=== PATIENT | female | born 1985 | race Caucasian/White ===

== ENCOUNTER 2019-02-12 22:55 | Emergency (ER) | payer BC, MEDICAID ==
[~2019-02-12] VITALS: Ht 167.6 cm; Wt 83.9 kg
[2019-02-12 22:57] VITALS: BP 118/70
[2019-02-12] MEDS ORDERED: FLUOXETINE HCL10 M2 ORAL (22:58)
[2019-02-12] MEDS ORDERED: TRAZODONE HCL150 MG ORAL (22:58)
--- NOTE | 2019-02-12 22:59 | NUR ---
ED Nurse Note: Patient here BIBA reports possible overdose, patient and patient sister denies reports. Patient has history of psych.
--- NOTE | 2019-02-12 23:16 | NUR ---
ED Nurse Note: Patient admits attempting to see therapist who no longer provided care for her and having the police called on her. She denies intention to harm herself and appears to have no ability to guage inappropriate behavior.
--- NOTE | 2019-02-12 23:31 | Emergency Room Report ---
History of Present Illness General Chief Complaint: Overdose Source: Patient Present Illness HPI This is a 33-year-old female with psychiatric history with bipolar. She was brought in by EMS with police escort complaint of behavioral disorder. She was placed on a 5150 for danger to self and danger to others. Patient states she told her sister and mom state that she was suicidal because she could not reach her therapist for the last 2 weeks. She states she was concerned about him. Patient told nursing staff that she saw her therapist 2 weeks ago. Her therapist called police and said that it was inappropriate for her to be there. She has been trying to contact for the last 2 weeks without any response. This of this, she said she is depressed and suicidal. Per police, she tells several numbers that she will commit suicide by taking unknown number of pills. Additionally, we said her mom is inferior of her safety because patient has threatened her in the past. Patient denies any of this. She says she is not suicidal. Denies threatening mom. Allergies: Coded Allergies: No Known Allergies (Unverified , 02/12/19) Patient History Past Medical History: see triage record, old chart reviewed, psych hx, bipolar Past Surgical History: other Family History: none Social History: single Last Menstrual Period: 02/819 Now: No Reviewed Nursing Documentation: PMH: Agreed; PSxH: Agreed Nursing Documentation-PMH Past Medical History: No History, Except For History Of Psychiatric Problem: Yes - DEPRESSION, PSYCH Review of Systems ENT: Denies: sore throat Cardiovascular: Denies: chest pain, palpitations Gastrointestinal/Abdominal: Denies: nausea, vomiting, diarrhea Musculoskeletal: Denies: back problems Skin: Denies: rash Neurological: Denies: NEGRON, seizures All Other Systems: negative except mentioned in HPI Physical Exam Vital Signs Date Time Temp Pulse Resp B/P (MAP) Pulse Ox O2 Delivery O2 Flow Rate FiO2 02/12/19 22:54 98.6 104 16 118/70 (86) 99 Room Air Vitals normal Sp02 EP Interpretation: reviewed, normal General Appearance: alert/responsive, no apparent distress, non-toxic Head: normocephalic, atraumatic Eyes: PERRL, EOMI ENT: oropharynx normal Neck: supple/symm/no masses Respiratory: effort normal, no rhonchi, no wheezing Cardiovascular: no murmur, gallop, rub Gastrointestinal: non-tender, no mass, non-distended, no rebound/guarding, normal bowel sounds Musculoskeletal: gait & station normal Neurologic: oriented x3, sensory intact, motor strength/tone normal Psychiatric: other - Flat affect Skin: no rash, normal palpation Medical Decision Making Diagnostic Impression: Primary Impression: Behavior disorder Additional Impression: UTI (urinary tract infection) Qualified Codes: N30.00 - Acute cystitis without hematuria ER Course Patient presents with possible overdose. Pill bottles several pills in them. The prescription on them were written a year ago. She is not tachycardic or hypertensive. She is calm. She may have some borderline personality disorder because she would go as far as trying her to self because she could not contact her therapist. She is medically cleared for psychiatric evaluation. Lab Results Impression labs unremarkable. Last Vital Signs Date Time Temp Pulse Resp B/P (MAP) Pulse Ox O2 Delivery O2 Flow Rate FiO2 02/12/19 22:54 98.6 104 16 118/70 (86) 99 Room Air Status: improved Disposition: XFER TO PSYCH HOSP/UNIT Condition: Stable Scripts Cephalexin* (KEFLEX*) 500 Mg Capsule 500 MG ORAL EVERY 6 HOURS for 7 Days, CAP Prov: Victorino Hairston MD 02/13/19 Referrals: GRICEL ZHAO M.D. (REFERMD) (PCP) Singh Quevedo MD Feb 12, 2019 23:31
[2019-02-12 23:55] LABS: BASOPHILS % (AUTO) 0.5 % (0.0-2.0); EOSINOPHILS % (AUTO) 1.6 % (0.0-3.0); HEMATOCRIT 39.4 % (37.0-47.0); HEMOGLOBIN 13.8 G/DL (12.0-16.0); LYMPHOCYTES % (AUTO) 27.2 % (20.0-45.0); MEAN CORPUSCULAR VOLUME 84 FL (80-99); MONOCYTES % (AUTO) 8.9 % (1.0-10.0); NEUTROPHILS % (AUTO) 61.8 % (45.0-75.0); PLATELET COUNT 238 K/UL (150-450); RED BLOOD COUNT 4.67 M/UL (4.20-5.40); RED CELL DISTRIBUTION WIDTH 10.9 % (11.6-14.8); WHITE BLOOD COUNT 6.9 K/UL (4.8-10.8)
[2019-02-13 00:02] LABS: ANION GAP 8 mmol/L (5-15); BLOOD UREA NITROGEN 13 mg/dL (7-18); CALCIUM 8.5 MG/DL (8.5-10.1); CARBON DIOXIDE 28 MMOL/L (21-32); CHLORIDE 105 MMOL/L (98-107); CREATININE 0.8 MG/DL (0.55-1.30); POTASSIUM 3.7 MMOL/L (3.5-5.1); SODIUM 141 MMOL/L (136-145)
[2019-02-13 00:06] LABS: ALANINE AMINOTRANSFERASE 46 U/L (12-78); ALBUMIN 3.3 G/DL (3.4-5.0); ALBUMIN/GLOBULIN RATIO 0.9 (1.0-2.7); ALKALINE PHOSPHATASE 96 U/L (46-116); ASPARTATE AMINO TRANSFERASE 29 U/L (15-37); BILIRUBIN,TOTAL 0.1 MG/DL (0.2-1.0)
--- NOTE | 2019-02-13 00:15 | NUR ---
ED Nurse Note: Patient ambulated to restroom, patient unable to provide adequate urine sample.
--- NOTE | 2019-02-13 00:30 | NUR ---
ED Nurse Note: Patient provided with menstrual pad and temporary underwear.
--- NOTE | 2019-02-13 01:20 | NUR ---
ED Nurse Note: Patient resting comfortably with no s/s of acute distress.
[2019-02-13 01:56] LABS: APPEARANCE,URINE CLOUDY; BILIRUBIN, URINE NEGATIVE (NEGATIVE); GLUCOSE, URINE (UA) NEGATIVE (NEGATIVE); KETONES,URINE 1+ (NEGATIVE); LEUKOCYTE ESTERASE ,URINE 2+ (NEGATIVE); NITRITE,URINE NEGATIVE (NEGATIVE); PH,URINE 5 (4.5-8.0); PROTEIN,URINE 2+ (NEGATIVE); UROBILINOGEN,URINE 1 MG/DL (0.0-1.0)
[2019-02-13 01:57] LABS: COLOR,URINE YELLOW
[2019-02-13] MEDS ORDERED: Cephalexin 500mg cap ORAL ONE (02:15)
--- NOTE | 2019-02-13 02:30 | NUR ---
ED Nurse Note: Patient requested medication for cramping. request accomodated.
[2019-02-13 06:35] VITALS: BP 118/70
--- NOTE | 2019-02-13 06:42 | NUR ---
ED Nurse Note: PER JYOTSNA CHESTER SHE RECEIVED A CALL FROM [facility] AND THEY WILL ACCEPT THE PATIENT. NO FURTHER TRANSFER INFORMATION YET. WILL GIVE US A CALL BACK
[2019-02-13] MEDS ORDERED: CEPHALEXIN500 MG ORAL (06:44)
--- NOTE | 2019-02-13 06:49 | NUR ---
ED Nurse Note: Patient belongings in locker 1
--- NOTE | 2019-02-13 07:10 | NUR ---
ED Nurse Note: SITTER AT THE BEDSIDE. BREAKFAST TRAY GIVEN
--- NOTE | 2019-02-13 08:00 | NUR ---
ED Nurse Note:pt. is awake had breakfast, sitter is at bedside
[2019-02-13 08:18] VITALS: BP 109/78
--- NOTE | 2019-02-13 08:31 | NUR ---
ED Nurse Note:called report to silvestre cee given report to joe Bowden, pt. picked up by ambulance
[2019-02-13 08:32] VITALS: BP 109/78
== END 2019-02-13 08:40 ==
LOC: EDBD 22:55 → EMR 23:10
DX: F60.9 Personality disorder, unspecified (principal); N30.00 Acute cystitis without hematuria; F32.9 Major depressive disorder, single episode, unspecified; F31.9 Bipolar disorder, unspecified; R45.851 Suicidal ideations
CPT/HCPCS: 36415; 80053; 80307; 81003; 81025; 85025; 87086; 99283; G0480; 80329